=== PATIENT | female | born 1940 ===

== ENCOUNTER 2024-02-19 06:19 | Day surgery (SDC) | payer MEDICARE, OTHER, SELFPAY ==
[2024-02-19] VITALS (12 sets, daily range): BP systolic 109–127; BP diastolic 67–84; BMI 23.1
--- NOTE | 2024-02-19 17:33 | PTCARENOTE ---
Pt returned from OR to [facility] bay 1 via stretcher. VSS on monitor. Pt alert. Updated pt on plan of care. 2L n/c applied. Family updated by surgeon.
--- NOTE | 2024-02-19 18:09 | PTCARENOTE ---
Pt still in [facility] bay 1. Surgeon spoke to patient's son on the phone, pt remains in SDS and NPO status. Report given to Catrachita PEREZ.
--- NOTE | 2024-02-19 18:50 | PTCARENOTE ---
Received report from Paula RN at 1800. Pt aox4. 2L NC. HR 40-70 BPM. NSR with PACs and PVCs. Denies pain. Awaiting OR
--- NOTE | 2024-02-19 19:26 | PTCARENOTE ---
Pt voided. Unsteady, assist x1. Pt now on RA 02 sat 97%. Report given to AUDRA Magallon, CHRIS.
--- NOTE | 2024-02-19 21:52 | OR.RPT ---
Operative Report
Operative Report
Anesthesia Type:
General With peripheral block
Operative Indications:
Displaced 2 part proximal humerus fracture with greater than 100% displacement
Operative Findings :
Same
Complications:
None
Implants:
[place] T2 short 10 mm proximal humeral nail
Procedure and Technique:
Insertion left humeral intramedullary nail
INDICATIONS FOR PROCEDURE:
Patient is an active 83-year-old female who resides independently sustained a mechanical fall diagnosed with a left proximal humerus fracture. She follow-up in office and there was significant interval displacement compared to her injury films.
There is greater than 100% of displacement fracture without any cortical contact in the shaft and the humeral head. We discussed treatment options with surgical nonsurgical. Given her activity level, she opted to pursue surgical intervention. We
discussed risks benefits and alternatives of surgery. We discussed the usual expected perioperative and postoperative course. After discussion written informed consent was obtained.
OPERATIVE PROCEDURE:
Patient was seen identified the preoperative holding area. Operative extremities marked. All questions were addressed and answered. She was taken to the operating room where anesthesia was administered. She was placed in a beachchair position.
Preoperative orthogonal images confirmed displaced 2 part proximal humerus fracture. Operative extremity was then prepped and draped in normal sterile fashion. Timeout was performed again identifying the correct operative extremity. Preoperative
antibiotics were addressed. Anterolateral incision was made just off the anterior lateral corner of the acromion. Sharp dissection was carried through skin subcutaneous tissues. Electrocautery was used for hemostasis. Raphae and the deltoid was
identified and incised. Bursal tissue was removed and subacromial space. Under fluoroscopic guidance guidewire was inserted into the humeral head down the humeral shaft after a reduction maneuver was performed. Opening reamer was utilized. Nail
was then inserted to the appropriate depth. Through additional stab incisions, 3 locking screws were placed proximally. Attention was paid to make sure that these were extra-articular and there was no penetration into the joint. 2 additional
locking interlocking screws were placed distally through the nail. Orthogonal fluoroscopic images confirmed appropriate reduction of the fracture. There was no palpable crepitus with motion of the shoulder. The glenohumeral joint was moved under
live fluoroscopy and there was no evidence of intra-articular penetration of screws. Satisfied with extent surgery, wounds were copiously irrigated normal saline solution. Wounds were closed in layered fashion utilizing 2-0 Vicryl for deep fascial
layer subacromial space and repair of the deltoid as well as 2-0 Vicryl for the subcutaneous layer. [place] were used for closure of skin. Aquacel dressings placed. Anesthesia was reversed and patient was taken to PACU in stable condition.
Postoperative plans include nonweightbearing to the left upper extremity in sling. Plan to keep patient overnight and discharge home after therapy works with her. Plan to see patient back in 2 weeks.
Disposition:
PACU stable condition
[2024-02-19] MEDS: DILAUDID 0.25 MG IV (22:16)
[2024-02-19] MEDS: NSS 1000 IV (22:51)
[2024-02-19] MEDS: COLACE 100 MG PO (22:54)
--- NOTE | 2024-02-19 23:08 | PTCARENOTE ---
22:25 pt rec'vd from PACU aaox3, able to make needs known. Pt l shoulder Aquacel in place CDI with WADE mishra. Oriented to unit , family met pt in room and quickly left.
[2024-02-20] VITALS (7 sets, daily range): BP systolic 109–129; BP diastolic 55–76; PULSE 65–67; O2SAT 96
[2024-02-20] MEDS: ROXICODONE 5 MG PO ×2 (00:09→08:39)
[2024-02-20] MEDS: ANCEF 5 IV ×2 (00:09→08:34)
--- NOTE | 2024-02-20 07:47 | W.PN.ORTHO ---
Today's Communication / Plan
-
83-year-old female postop day 1 status post left proximal humerus intramedullary nail doing well
Nonweightbearing left upper extremity in sling
PT OT
Pain control
Plan for discharge later today pending PT evaluation
Will send narcotic and 81 mg aspirin daily to patient's pharmacy
Subjective
.
.:
Patient resting comfortably this morning. No acute overnight events.
Vital Signs and Labs
.
Vital Signs and Labs:
Temp Pulse Resp BP Pulse Ox
97.7 F 72 18 110/62 96
02/20/24 03:52 02/20/24 03:52 02/20/24 03:52 02/20/24 03:52 02/20/24 03:52
Physical Exam
-
Musculoskeletal left upper extremity
Dressing clean dry and intact
Moderate swelling
Sensations intact to light touch in all dispositions distally
Brisk cap refill
No gross motor or sensory deficits
[2024-02-20] MEDS: COLACE 100 MG PO (08:35)
[2024-02-20] MEDS: NSS IV (09:28)
--- NOTE | 2024-02-20 10:48 | CM ---
CM met with pt and son/Geovanny bedside
Pt resides alone in a ranc[place] with 3STE
Pt is independent with her ADLs- drives+
Denies use of DMEs and hx with VN/SNF
Denies financial insecurities
PCP- Missy Condon
Rx- Jonny/Mason
VN recommended by therapy
Referral made to [facility]
Pt with plans to move to [facility] in 6 weeks
spouse listed as primary contact on chart
Contacts updated with admissions
1). Samuel Cramer/son joint POA [phone]
2). Geovanny Cramer/son joint POA [phone]
Discharge Disposition- [facility] family transport
--- NOTE | 2024-02-20 13:10 | VNURNOTE ---
Home Health Liaison met with patient and son to discuss [facility] nurse/therapy, visits, schedule and homebound status. Patient is agreeable and understands that visits at home will be 2-3 x per week to assess and teach medical management.
[facility] brochure provided with contact information. Patient is aware that [facility] will contact them for start of care in 1-2 days after discharge from .
[facility] referral completed in [facility].
== END 2024-02-20 13:38 | disposition home or self-care (01) ==
LOC: SDS 06:19
PROVIDERS: ATTENDING PHYSICIAN Orthopaedic Surgery; FAMILY PHYSICIAN Family Medicine
DX: S42.292A Other displaced fracture of upper end of left humerus, initial encounter for closed fracture (principal); W19.XXXA Unspecified fall, initial encounter
CPT/HCPCS: 24516; C1713; 73030; 76000; 97116; 97162; 97166; 97535

== ENCOUNTER 2024-03-19 12:34 | Inpatient (IN) | payer MEDICARE, OTHER, SELFPAY ==
[2024-03-18] VITALS (47 sets, daily range): BP systolic 66–114; BP diastolic 36–73; BMI 21.5; BMI 22.4
[2024-03-18] MEDS: TYLENOL 1000 MG PO (06:50)
[2024-03-18] MEDS: CELEBREX 200 MG PO (06:50)
--- NOTE | 2024-03-18 07:40 | W.PN.UPDATE ---
Update Note
Progress Note Update
L Reverse TSA conversion w/ removal of hardware 03/18/24-Dr. Jade
(Left proximal humerus fx-s/p intramedullary nail 02/19/24)
DVT ppx-ASA
--- NOTE | 2024-03-18 08:07 | W.DS.TRANS ---
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
-
Discharge Instructions:
Sleep Apnea Risk Low
Discharge Diagnosis/Procedures L Reverse TSA conversion w/ removal of hardware
03/18/24-Dr. Jade
(Left proximal humerus fx-s/p intramedullary
nail 02/19/24)
Diet As tolerated
Activity No strenuous activity
Additional Activity NWB LUE
Driving Restrictions No driving
Instructions:
Stand-Alone Forms: Total Shoulder Replacement D/C
Changes to Home Medications: Yes
Discharge Medications:
DC Medications w/original date entered in [employer]
amlodipine 5 mg tablet 5 mg PO DAILY 02/18/24
calcium 600 mg (as carbonate)-vit D3 20 mcg (800 unit) chewable tablet (Caltrate plus D) 1 tab PO BID 02/18/24
triamterene 37.5 mg-hydrochlorothiazide 25 mg capsule 1 cap PO DAILY 02/18/24
aspirin 81 mg capsule 81 mg PO DAILY 03/12/24
mupirocin 2 % topical ointment 1 applic topical BID 03/13/24
Saccharomyces boulardii 250 mg capsule (Florastor) 250 mg PO BID #1 cap 03/18/24
acetaminophen 500 mg tablet 1,000 mg (2 x 500 mg) PO QID #0 tabs 03/18/24
aspirin 325 mg tablet 325 mg PO DAILY blood clot prevention #1 tab 03/18/24
celecoxib 200 mg capsule 200 mg PO DAILY anti-inflammatory #14 caps 03/18/24
dexamethasone 4 mg tablet 4 mg PO BID inflammation #6 tabs 03/18/24
docusate sodium 100 mg capsule (Colace) 100 mg PO BID stool softner #1 cap 03/18/24
doxycycline hyclate 100 mg capsule 100 mg PO BID infection prevention #10 caps 03/18/24
famotidine 20 mg tablet 20 mg PO HS GI prophylaxis #30 tabs 03/18/24
gabapentin 300 mg capsule 300 mg PO HS sleep/pain #10 caps 03/18/24
magnesium hydroxide 400 mg/5 mL oral suspension (Milk of Magnesia) 30 ml PO HS PRN Constipation #1 mL 03/18/24
ondansetron 4 mg disintegrating tablet 4 mg PO Q6H PRN n/v #20 tabs 03/18/24
sennosides 8.6 mg tablet (Senokot) 17.2 mg (2 x 8.6 mg) PO BID laxative #2 tabs 03/18/24
tramadol 50 mg tablet 50 mg PO Q6H PRN 1 tab moderate pain, 2 if severe #30 tabs 03/18/24
Home Medication Changes
mupirocin 2 % topical ointment 1 applic topical BID 03/13/24
Saccharomyces boulardii 250 mg capsule (Florastor) 250 mg PO BID #1 cap 03/18/24
acetaminophen 500 mg tablet 1,000 mg (2 x 500 mg) PO QID #0 tabs 03/18/24
aspirin 325 mg tablet 325 mg PO DAILY blood clot prevention #1 tab 03/18/24
celecoxib 200 mg capsule 200 mg PO DAILY anti-inflammatory #14 caps 03/18/24
dexamethasone 4 mg tablet 4 mg PO BID inflammation #6 tabs 03/18/24
docusate sodium 100 mg capsule (Colace) 100 mg PO BID stool softner #1 cap 03/18/24
doxycycline hyclate 100 mg capsule 100 mg PO BID infection prevention #10 caps 03/18/24
famotidine 20 mg tablet 20 mg PO HS GI prophylaxis #30 tabs 03/18/24
gabapentin 300 mg capsule 300 mg PO HS sleep/pain #10 caps 03/18/24
magnesium hydroxide 400 mg/5 mL oral suspension (Milk of Magnesia) 30 ml PO HS PRN Constipation #1 mL 03/18/24
ondansetron 4 mg disintegrating tablet 4 mg PO Q6H PRN n/v #20 tabs 03/18/24
sennosides 8.6 mg tablet (Senokot) 17.2 mg (2 x 8.6 mg) PO BID laxative #2 tabs 03/18/24
tramadol 50 mg tablet 50 mg PO Q6H PRN 1 tab moderate pain, 2 if severe #30 tabs 03/18/24
Pending Results: No
--- NOTE | 2024-03-18 11:54 | OR.RPT ---
Operative Report
Operative Report
Anesthesia Type:
General With block
Operative Indications:
Left proximal humerus hardware failure
Operative Findings :
Head split fracture, significantly osteoporotic tuberosities, significant early healing and callus formation, irreparable tuberosities
Complications:
None
Implants:
Adriane reunion size 9 femoral stem cemented, 36+2 glenosphere, 28 baseplate, constrained poly
Procedure and Technique:
Removal of deep implant (proximal humerus nail), conversion to left reverse total shoulder arthroplasty
INDICATIONS FOR PROCEDURE:
Patient is an active 83-year-old female who unfortunately sustained mechanical fall from standing and suffered a left proximal humerus fracture. She was seen initially and given her activity level opted to proceed with surgical intervention of form
of intramedullary nail fixation of proximal humerus fracture. At her first postoperative visit, the fracture displaced and the hardware had failed proximally. Another long discussion was had with the patient regarding treatment options. We
discussed both surgical and nonsurgical options. Patient opted for the most definitive operative treatment. After discussion we mutually elected to proceed with removal of hardware and conversion to left reverse total shoulder arthroplasty. We
discussed risks benefits and alternatives of surgery. We discussed the usual expected perioperative and postoperative course. After discussion written informed consent was obtained
OPERATIVE PROCEDURE:
Patient was seen and identified in the preoperative holding area. Operative extremity was marked. All questions were addressed. She was taken to the operating room after peripheral block was performed and general anesthesia was administered. She
was placed in a beachchair position. Operative extremity was then prepped and draped in normal sterile fashion. Timeout was performed again identifying the correct operative extremity. Preoperative antibiotics were addressed. Initial attempt was
made to remove the distal interlocking screws from the nail. Previous stab incisions were utilized. We were unable to get good purchase with a screwdriver in the screws. Deltopectoral incision approach was then performed with attention paid to
protect all neurovascular structures. Hemostasis was achieved electrocautery. After exposure, there is noted to be significant early callus formation at the fracture site. The proximalmost aspect of the nail was visualized. Callus soft tissue
were removed proximally and the proximal screws were visualized. These were removed. Deltopectoral incision was then extended distally and the distal no screws were able to be palpated and also removed with a screwdriver. The nail was then
removed with anaer. After exposure, the lesser tuberosity was noted to be fractured and the subscapularis was of poor quality and irreparable. The remainder of the humeral head and greater tuberosity were extremely osteoporotic. The head was
rotated posteriorly. This was able to be removed in a piecemeal fashion but was again irreparable. Lesser tuberosity fragment was also excised. Axillary nerve was palpated and protected throughout remainder of exposure. The proximal humeral neck
fracture site was freshened up. Attention was then turned to the glenoid. Debulking of the capsule and labral tissue was performed. Central guidepin was then inserted and a size 24 central screw was measured. The glenoid was then reamed to
bleeding bone. Glenoid was placed. Remainder peripheral scrotal's were drilled. Size 20 mm screw was used superiorly, 16 mm screw posteriorly, 16mm screw anteriorly and 24 mm screw inferiorly. Excellent purchase was achieved. Glenosphere was
then placed in appropriate position. Attention was then turned back to the humerus. Hand reamers were utilized. Trial reduction was performed. Trial implants were then removed and the intramedullary canal was prepared for cementing. Cement
restrictor was placed. Cement was then placed in the intramedullary canal and the humeral stem was placed in appropriate version 20 degrees. Once this hardened trialing was performed until stable construct without impingement was found. Final
implants were then placed and again taken through range of motion found to be quite stable. Satisfied with extent of surgery, wound was copiously irrigated normal saline solution. 1 g of vancomycin powder was then placed. Deltopectoral interval
was then closed loosely with 0 Vicryl in an interrupted fashion. Subcutaneous layer was closed with 2-0 Vicryl. Sanket angulus or skin. Aquacel dressing was placed. Sling was then placed and patient was taken to PACU in stable condition.
Disposition:
PACU stable condition
[2024-03-18] MEDS: NEO-SYNEPHRINE 250 IV (12:05)
--- NOTE | 2024-03-18 12:09 | PTCARENOTE ---
PT arrived to PACU, easily arousable, denies pain, nausea, BP was 75/44, DR Higuera at bedside, 500 ml Fluid bolus ordered, Anesthesia administered 200 mcg of Conrad-Syn, BP did respond, however quickly dropped to 60's, Per Dr Higuera Conrad Drip
ordered as per protocol started @ 20 mcg, see MAR
[2024-03-18] MEDS: TYLENOL 650 MG PO ×3 (12:44→21:44)
--- NOTE | 2024-03-18 12:57 | PTCARENOTE ---
Attempted to wean off pressors, PT BP dropped to 86/62 without any Neosyn, placed drip on , PT remains asymptomatic to hypotension
--- NOTE | 2024-03-18 14:36 | HPS.HSE ---
Family Physician
-
Family Physician: INTERVIEWE UNKNOWN - PT NOT
Chief Complaint
-
hypotension
History of Present Illness
83yo F with PMHx of ASCVD, neuropathy, RA, preDM, OA, HTN had left proximal humerus intramedullary nail after LUE Fx done on 02/19/24, that later failed so as per agreement with ortho - L reverse total shoulder arthroplasty done electively on
03/18/24. Patient developed hypotension during the procedure. No significant blood loss perioperatively. Patient did not report any sickness prior to the surgery, however confirmed taking her Amlodipine in AM. Diuretics were held. No other
complains, BP improved on Neoepinephrine low dose.
Medical History
Past Medical History
Past Medical History: Reports Other (See HPI)
Past Surgical History: Reports Other (See HPI)
Social History
Tobacco: Non-smoker
Alcohol: None
Drug: None
Family History
Family History: Not pertinent
Allergies / Home Medications
Allergies reflects when Allergies were last updated in [facility].
Home Medications with original date entered in [facility]
Allergy/Medication List:
Allergies
Allergy/AdvReac Type Severity Reaction Status Date / Time
adhesive Allergy Redness Verified 02/19/24 15:12
Home Medications
amlodipine 5 mg tablet 5 mg PO DAILY 02/18/24
calcium 600 mg (as carbonate)-vit D3 20 mcg (800 unit) chewable tablet (Caltrate plus D) 1 tab PO BID 02/18/24
triamterene 37.5 mg-hydrochlorothiazide 25 mg capsule 1 cap PO DAILY 02/18/24
aspirin 81 mg capsule 81 mg PO DAILY 03/12/24
mupirocin 2 % topical ointment 1 applic topical BID 03/13/24
Saccharomyces boulardii 250 mg capsule (Florastor) 250 mg PO BID #1 cap 03/18/24
acetaminophen 500 mg tablet 1,000 mg (2 x 500 mg) PO QID #0 tabs 03/18/24
aspirin 325 mg tablet 325 mg PO DAILY blood clot prevention #1 tab 03/18/24
celecoxib 200 mg capsule 200 mg PO DAILY anti-inflammatory #14 caps 03/18/24
dexamethasone 4 mg tablet 4 mg PO BID inflammation #6 tabs 03/18/24
docusate sodium 100 mg capsule (Colace) 100 mg PO BID stool softner #1 cap 03/18/24
doxycycline hyclate 100 mg capsule 100 mg PO BID infection prevention #10 caps 03/18/24
famotidine 20 mg tablet 20 mg PO HS GI prophylaxis #30 tabs 03/18/24
gabapentin 300 mg capsule 300 mg PO HS sleep/pain #10 caps 03/18/24
magnesium hydroxide 400 mg/5 mL oral suspension (Milk of Magnesia) 30 ml PO HS PRN Constipation #1 mL 03/18/24
ondansetron 4 mg disintegrating tablet 4 mg PO Q6H PRN n/v #20 tabs 03/18/24
sennosides 8.6 mg tablet (Senokot) 17.2 mg (2 x 8.6 mg) PO BID laxative #2 tabs 03/18/24
tramadol 50 mg tablet 50 mg PO Q6H PRN 1 tab moderate pain, 2 if severe #30 tabs 03/18/24
Review of Systems
-
History Source: Patient and Family
A 12 point ROS was completed and negative except as noted: Yes
Physical Exam
Vital Signs
Vital Signs
Temp Pulse Resp BP Pulse Ox
97.2 F 56 18 97/62 99
03/18/24 14:30 03/18/24 14:00 03/18/24 14:00 03/18/24 14:00 03/18/24 14:30
Physical Exam
General: No Apparent Distress, Comfortable and Conversant
HEENT: Anicteric, Moist mucous membranes and [place] Conjunctivae
Respiratory: Clear; No Wheezes, Rales or Rhonchi
Cardiac: S1/S2 and Regular Rhythm; No Bradycardia or Tachycardia
GI: Soft, Non Tender and Non Distended
Musculoskeletal: No Clubbing, No Cyanosis and No Edema
Skin: Warm; No Rash or Jaundice
Neuro: Awake, Alert, Oriented, AO x 3, No Motor Deficits and Nonfocal/grossly intact
Psych: Calm
Impression/Plan
-
A/P:
#PostOP hypotension
most likely 2/2 intubation, anaesthesia on the top of antihypertensives
CBC, CMP stat
EKG stat, but no chest pain
IVF and wean off pressors
check TSH
Pain mgmt as per ortho
#Esential HTN
hold off antihypertensives
DVt ppx - on ASA as per Ortho
Add SCDs
Full code
I have spent at least 57min reviewing chart, test results, communication with consultants, family and direct patient care
[2024-03-18 14:44] LABS: % Basophils 0.2 % (0-2); % Eosinophils 0.1 % (0-6); % Immature Granulocytes 0.4 % (0-0.5); % Lymphocytes 3.6 % (20.5-51.1); % Monocytes 1.7 % (1.7-9.3); Absolute Lymphocytes 0.4 10^3/uL (1.2-3.4); Absolute Monocytes 0.2 10^3/uL (0.1-0.6); Absolute Neutrophils 9.9 10^3/uL (1.4-6.5); Hematocrit 23.7 % (37.0-47.0); Hemoglobin 8.1 g/dL (12.0-16.0); Mean Corp Hgb Conc. 34.2 g/dL (33.0-37.0); Mean Corpuscular Hgb 32.8 pg (27.0-31.0); Mean Platelet Volume 10.7 fL (7.4-10.4); Nucleated Red Blood Cells % 0 %; Platelet Count 141 10^3/uL (130-400); Red Blood Cell Count 2.47 10^6/uL (4.20-5.40); Red Cell Dist. Width 13.5 % (11.5-14.5); White Blood Cell Count 10.5 10^3/uL (4.8-10.8)
[2024-03-18 15:13] LABS: Albumin 1.2 g/dl (3.5-5.0); Alkaline Phosphatase 43 U/L (38-126); Blood Urea Nitrogen 5 mg/dl (7-17); Chloride 97 mmol/L (98-107); Estimated Creatinine Clearance 51 ml/min; Glucose 85 mg/dl (70-99); Potassium 4.1 mmol/L (3.5-5.1); Sodium 132 mmol/L (135-145); Total Protein 2.2 g/dl (6.3-8.2); eGFR > 60.00
[2024-03-18 15:14] LABS: ALT (SGPT) < 10 U/L (0-35); AST (SGOT) 10 U/L (14-36); Calcium 3.7 mg/dl (8.4-10.2); Carbon Dioxide 10 mmol/L (22-30); Total Bilirubin 0.4 mg/dl (0.2-1.3)
[2024-03-18 15:35] LABS: TSH 0.32 uIU/ml (0.47-4.68)
[2024-03-18] MEDS: ANCEF 5 IV (16:08)
[2024-03-18] MEDS: NORMOSOL-R/PLASMALYTE-A 1000 IV (16:08)
[2024-03-18 16:17] LABS: Ionized Calcium 1.15 mMOL/L (1.15-1.33)
[2024-03-18 16:25] LABS: % Basophils 0.2 % (0-2); % Eosinophils 0.1 % (0-6); % Immature Granulocytes 0.5 % (0-0.5); % Lymphocytes 4.1 % (20.5-51.1); % Monocytes 2.2 % (1.7-9.3); % Neutrophils 92.9 % (42.2-75.2); Absolute Immature Granulocytes 0.1 10^3/uL (0-0.05); Absolute Lymphocytes 0.5 10^3/uL (1.2-3.4); Absolute Monocytes 0.3 10^3/uL (0.1-0.6); Absolute Neutrophils 11.9 10^3/uL (1.4-6.5); Hematocrit 36.8 % (37.0-47.0); Hemoglobin 12.2 g/dL (12.0-16.0); Mean Corp Hgb Conc. 33.2 g/dL (33.0-37.0); Mean Corpuscular Hgb 32.4 pg (27.0-31.0); Mean Corpuscular Volume 97.6 fL (81.0-99.0); Mean Platelet Volume 11.6 fL (7.4-10.4); Nucleated Red Blood Cells % 0 %; Platelet Count 225 10^3/uL (130-400); Red Blood Cell Count 3.77 10^6/uL (4.20-5.40); Red Cell Dist. Width 13.6 % (11.5-14.5); White Blood Cell Count 12.8 10^3/uL (4.8-10.8)
[2024-03-18 16:29] LABS: Lactic Acid 2.7 mmol/L (0.7-2.0)
--- NOTE | 2024-03-18 16:30 | PTCARENOTE ---
1455: Patient arrived to IMU. Patient AOx3. L arm aquacell with moderate amount of serosang drainage. Bruising around aquacell dressing. L arm sling in place. IVF running per order. Conrad running at 20/hr. MAP > 65. Patient on RA with SpO2 greater
than 92%. Patients family at bedside. Call zhu within reach, bed in lowest position, bed of wheels locked.
[2024-03-18 16:35] LABS: ALT (SGPT) 16 U/L (0-35); AST (SGOT) 25 U/L (14-36); Albumin 3.5 g/dl (3.5-5.0); Alkaline Phosphatase 112 U/L (38-126); Blood Urea Nitrogen 12 mg/dl (7-17); Calcium 9.1 mg/dl (8.4-10.2); Carbon Dioxide 27 mmol/L (22-30); Chloride 100 mmol/L (98-107); Estimated Creatinine Clearance 51 ml/min; Glucose 172 mg/dl (70-99); Potassium 3.5 mmol/L (3.5-5.1); Sodium 137 mmol/L (135-145); Total Protein 5.6 g/dl (6.3-8.2); eGFR > 60.00
--- NOTE | 2024-03-18 17:00 | PTCARENOTE ---
1700: Conrad gtt turned off due to patients MAP >65 for 4 hours per order. Will continue to monitor. Care ongoing at this time.
[2024-03-18] MEDS: ASPIRIN 325 MG PO (17:11)
[2024-03-18] MEDS: COLACE 100 MG PO (21:44)
[2024-03-18] MEDS: TORADOL 15 MG IV (21:45)
[2024-03-18] MEDS: SENOKOT PO (21:46)
[2024-03-18] MEDS: DECADRON 4 MG IV (21:47)
[2024-03-18] MEDS: BACTROBAN 2% OINTMENT 1 APPLIC NASAL (21:48)
--- NOTE | 2024-03-18 22:00 | PTCARENOTE ---
Pt received from previous RN. Pt AAOx3, anxious at times. Pt on RA, sats >95%. Left arm in sling, aquacell intact, scant drainage, moderate bruising to left arm around aqucell. Pt with frequent small amounts of urination. Pt check frequently for
incomitance. Pt turned. Foot pumps in use. Assessment as documented. Call light in reach.
--- NOTE | 2024-03-18 23:30 | PTCARENOTE ---
Map <65. Bp reading 89/49(61). [employer] Operator notified. Conrad turned back on.
[2024-03-19] VITALS (43 sets, daily range): BP systolic 88–122; BP diastolic 41–86; PULSE 60–90; O2SAT 99; BMI 22.9
[2024-03-19] MEDS: TYLENOL 650 MG PO ×5 (00:19→20:30)
[2024-03-19] MEDS: ANCEF 5 IV (00:20)
[2024-03-19] MEDS: NEURONTIN 300 MG PO ×2 (00:20→22:14)
[2024-03-19 04:05] LABS: Hematocrit 30.8 % (37.0-47.0); Hemoglobin 10.3 g/dL (12.0-16.0); Mean Corp Hgb Conc. 33.4 g/dL (33.0-37.0); Mean Corpuscular Hgb 32.3 pg (27.0-31.0); Mean Corpuscular Volume 96.6 fL (81.0-99.0); Mean Platelet Volume 10.9 fL (7.4-10.4); Platelet Count 195 10^3/uL (130-400); Red Blood Cell Count 3.19 10^6/uL (4.20-5.40); Red Cell Dist. Width 13.6 % (11.5-14.5); White Blood Cell Count 9.5 10^3/uL (4.8-10.8)
[2024-03-19 05:07] LABS: Cortisol, Random 2.2 ug/dl; TSH Reflex To Free T4 0.36 uIU/ml (0.47-4.68)
[2024-03-19 05:37] LABS: Free T4 1.15 ng/dl (0.78-2.19)
[2024-03-19] MEDS: TYLENOL PO ×2 (06:30→23:55)
[2024-03-19] MEDS: CELEBREX 200 MG PO (08:52)
[2024-03-19] MEDS: COLACE 100 MG PO ×2 (08:52→20:29)
[2024-03-19] MEDS: ASPIRIN 325 MG PO (08:53)
[2024-03-19] MEDS: DECADRON 4 MG IV (08:53)
[2024-03-19] MEDS: TORADOL 15 MG IV ×2 (08:54→20:32)
[2024-03-19] MEDS: SENOKOT 17.2 MG PO ×2 (08:54→20:29)
[2024-03-19] MEDS: BACTROBAN 2% OINTMENT 1 APPLIC NASAL ×2 (08:55→20:33)
--- NOTE | 2024-03-19 09:51 | W.PN.HOSP.TC ---
Today's Communication/Plan
-
PT/OT
Possible d/c based on their eval
Assessment / Plan
Assessment / Plan
83yo F with PMHx of ASCVD, neuropathy, RA, preDM, OA, HTN had left proximal humerus intramedullary nail after LUE Fx done on 02/19/24, that later failed so as per agreement with ortho - L reverse total shoulder arthroplasty done electively on
03/18/24. Patient developed hypotension during the procedure that was atributed to dehydration with home diuretics, amlodipine on the day of Sx and anethesia effect. Weaned off pressors next day after admission
A/P:
#PostOP hypotension
most likely 2/2 intubation, anaesthesia on the top of antihypertensives
CBC, CMP stat
EKG stat, but no chest pain
IVF and wean off pressors
Pain mgmt as per ortho
PT/OT
#Subclinical hyperthyroidism
repeat TSH in 2-3 weeks with PCP
#Decreased Cortisol
most liekly supression 2/2 steroids periOP
repeat with PCP in 2-3 weeks and consider ACTH stim test
#Esential HTN
hold off antihypertensives
Advised to not initiate diuretics upon the d/c
DVT ppx - on ASA as per Ortho
Add SCDs
Full code
I have spent at least 57min reviewing chart, test results, communication with consultants, family and direct patient care
Anticipated Discharge: Within 24 hours
Subjective/Interval History
-
Date of Service: March 19, 2024
Objective Data
-
Labs:
Laboratory Results
03/19/24
03:56
WBC 9.5
Hgb 10.3 L
Hct 30.8 L
Plt Count 195
Vital Signs:
Vital Signs
Temp Pulse Resp BP Pulse Ox
98.1 F 53 15 93/55 61
03/19/24 07:39 03/19/24 06:15 03/19/24 06:15 03/19/24 06:15 03/19/24 06:15
I&O
03/18/24 03/19/24 03/20/24
06:59 06:59 06:59
Intake Total 600 / 600
Balance 600 / 600
Review of Systems
-
History Source: Patient
All other systems: Reviewed and negative
Physical Exam
-
General: No Apparent Distress
HEENT: Normocephalic
Cardiac: Regular Rhythm
GI: Soft, Nontender and Nondistended
Neuro: Awake, Alert, Oriented and AO x 3
Psych: Calm
--- NOTE | 2024-03-19 12:04 | CM ---
Patient with Hx fall who is s/p Removal of deep implant (proximal humerus nail), conversion to left reverse total shoulder arthroplasty. NWB LUE in sling. PT recommends skilled rehab.
Met with patient who resided alone in a one story house with 2 SAAD.
The patient had been independent in ADLs and ambulation without using an assistive devices.
She was active walking outside and says she [facility] [employer] last [facility].
The patient has no DME or prior SNF.
[facility] with [facility] and says she was getting PT at home for balance issues.
The patient says she had been planning on moving into [facility] in [place], and reports that they have accepted her for rehab. Her son has been helping with those plans.

Spoke with Roseline Armendariz [facility]; they are able to accept the patient on 03/21 after she satisfies her 3 day Medicare qualifier. They do not use [facility] and need the referral faxed to [phone] ---> sent via
[address]. The for report [phone] prompt 1, fax [phone].
Spoke with patient's son Samuel BOWDEN who confirms that he arranged for his mother to move into [facility]. Explained that [facility] SNF can accept his mother on 03/21 and he is in agreement with that plan. Provided update on
how she did with PT/OT today and that currently PT/OT advises against her transporting in the car to rehab, due to need to maintain non-wt bearing status for her shoulder and inability to master ambulation with a cane at this time.
Plan follow up with [facility] to ensure referral received/accepted.
Plan [facility] 03/21 with transport arranged.
--- NOTE | 2024-03-19 12:12 | W.PN.ORTHO ---
Today's Communication / Plan
-
83 yo F pod 1 s/p CHRISTINE, conversion to left rTSA. Required pressors post op and transfer to IMU, per nursing, off of pressors for over 4 hrs with approriate BP
NWB LUE in sling/abduction pillow
PT/OT
Pain control
recommend asa 81 mg daily for DVT ppx upon discharge
Medical management/pressor management per medicine
Once BP appropriate off support, OK for discharge from my standpoint
Follow up 2 weeks. This is already scheduled
Will send ASA and oxycodone to patient's pharmacy
Subjective
.
.:
Patient resting comfortably in bed this morning. Reports well controlled pain.
Vital Signs and Labs
.
Vital Signs and Labs:
Lab Results
03/19/24 03:56
03/18/24 15:57
Temp Pulse Resp BP Pulse Ox
97.3 F 59 11 114/71 97
03/19/24 11:45 03/19/24 08:30 03/19/24 09:00 03/19/24 11:30 03/19/24 09:00
Physical Exam
-
MSK LUE
Minimal bloody drainage on dressing
Moderate swelling, ecchymosis upper arm
SILT all distributions distally including axillary nerve distribution
Able to retropulse thumb and extend wrist
BCR
--- NOTE | 2024-03-19 19:10 | PTCARENOTE ---
OOB all day - ambulates with 1 assist to bathroom. Unsteady gait. Left shoulder immobilizer intact/ readjusted through the day.. Aquacell dressing to left shoulder w/ shadowing no active bleeding. Denies pain- receiving atc Tylenol. Appetite
good- NO BM may need intervention. Voiding in bathroom. Calls for assistance.
--- NOTE | 2024-03-19 21:42 | PTCARENOTE ---
pt received from previous RN. Pt AAOx3, making needs known. Sinus meggan on monitor, HR 55. BP 121/71(83). Assessment as documented. left arm in sling per order. Call light in reach.
[2024-03-20] VITALS (10 sets, daily range): BP systolic 104–121; BP diastolic 61–85; PULSE 58; O2SAT 99
[2024-03-20] MEDS: TYLENOL PO (04:16)
[2024-03-20] MEDS: CELEBREX 200 MG PO (07:51)
[2024-03-20] MEDS: TYLENOL 650 MG PO (07:51)
[2024-03-20] MEDS: SENOKOT 17.2 MG PO ×2 (07:51→20:49)
[2024-03-20] MEDS: COLACE 100 MG PO ×2 (07:51→20:49)
--- NOTE | 2024-03-20 08:26 | VNURNOTE ---
Chart reviewed. Patient is current with [facility] nursing, PT, OT, UNDERWEAR FINISHER. Will continue to follow hospital course and DC plans.
--- NOTE | 2024-03-20 09:14 | W.PN.HOSP.TC ---
Addendum entered and electronically signed by Michael Garcia MD 03/20/24 09:28:
#Prolonged QTc
avoid QT-prolonging meds
EKG
Original Note:
Today's Communication/Plan
-
Echo
Pending rehab
telemetry
Assessment / Plan
Assessment / Plan
83yo F with PMHx of ASCVD, neuropathy, RA, preDM, OA, HTN had left proximal humerus intramedullary nail after LUE Fx done on 02/19/24, that later failed so as per agreement with ortho - L reverse total shoulder arthroplasty done electively on
03/18/24. Patient developed hypotension during the procedure that was atributed to dehydration with home diuretics, amlodipine on the day of Sx and anethesia effect. Weaned off pressors next day after admission. DIzziness resolved, PT/OT recommended
rehab
A/P:
#PostOP hypotension with lactic acidosis
#Asymptomatic bradycardia
most likely 2/2 intubation, anaesthesia on the top of antihypertensives
CBC, CMP stat
EKG stat, but no chest pain
IVF and wean off pressors
Pain mgmt as per ortho
PT/OT
Echo
Avoid BB and CCB
#Subclinical hyperthyroidism
repeat TSH in 2-3 weeks with PCP
#Decreased Cortisol
most likely supression 2/2 steroids periOP
repeat with PCP in 2-3 weeks and consider ACTH stim test
#Essential HTN
hold off antihypertensives
Advised to not initiate diuretics upon the d/c
DVT ppx - on ASA 81mg upon d/c as per Ortho
Add SCDs
Full code
I have spent at least 37min reviewing chart, test results, communication with consultants, family and direct patient care
Anticipated Discharge: 24 - 48 hours
Subjective/Interval History
-
Date of Service: March 20, 2024
Objective Data
-
Vital Signs:
Vital Signs
Temp Pulse Resp BP Pulse Ox
98.3 F 51 14 105/74 98
03/20/24 07:12 03/20/24 06:00 03/20/24 06:00 03/20/24 04:58 03/19/24 23:05
I&O
03/19/24 03/20/24 03/21/24
06:59 06:59 06:59
Intake Total 600 / 600 900 / 900
Balance 600 / 600 900 / 900
Review of Systems
-
History Source: Patient
All other systems: Reviewed and negative
Physical Exam
-
General: No Apparent Distress
Neuro: Awake, Alert, Oriented and AO x 3
Psych: Calm
[2024-03-20 10:29] LABS: Hematocrit 31.5 % (37.0-47.0); Hemoglobin 10.2 g/dL (12.0-16.0)
[2024-03-20 10:42] LABS: Blood Urea Nitrogen 32 mg/dl (7-17); Carbon Dioxide 33 mmol/L (22-30); Chloride 101 mmol/L (98-107); Estimated Creatinine Clearance 38 ml/min; Glucose 96 mg/dl (70-99); Magnesium 2.3 mg/dl (1.6-2.3); Potassium 3.4 mmol/L (3.5-5.1); Sodium 138 mmol/L (135-145); eGFR > 60.00
[2024-03-20] MEDS: PROTONIX 40 MG PO (11:13)
--- NOTE | 2024-03-20 12:01 | W.PN.ORTHO ---
Today's Communication / Plan
-
D/c when clinically stable.
Assessment
.
Distal Motor Intact: Yes
Dressing:
Clean, dry and intact.
Assessment:
83 yo F POD 2 s/p CHRISTINE, conversion to left reverse TSA. Required pressors post op and transfer to IMU; thankfully, off of pressors for last 24 hours with appropriate BP
NWB LUE in sling/abduction pillow
Continue PT/OT - recommend SNF due to balance difficulties/for safety
Continue current pain medications. Oxycodone, thankfully, has not been needed at this point.
Recommend ASA 81 mg daily for DVT ppx upon discharge
Medical management/pressor management per medicine
Continue to do well from an orthopedic standpoint
Follow up 2 weeks. This is already scheduled.
Plan
.
Surgery / Date: CHRISTINE, conversion to left reverse TSA w/ Jade
DVT Prophylaxis: Aspirin (81 mg PO daily upon d/c )
Activity:
Out of bed.
PT/OT
Discharge Plan: SNF
Subjective
.
.:
Patient resting comfortably in her chair.
L shoulder pain well controlled currently. Reportedly, at most, 3/10 post-op.
Denies any other complaints.
Vital Signs and Labs
.
Vital Signs and Labs:
Lab Results
03/20/24 10:12
03/20/24 10:12
Temp Pulse Resp BP Pulse Ox
98.3 F 56 19 110/61 98
03/20/24 07:12 03/20/24 10:00 03/20/24 10:00 03/20/24 09:22 03/19/24 23:05
Physical Exam
-
HEENT: No pallor, cyanosis, or jaundice. Throat clear.
NECK: Supple. No JVD.
RESPIRATORY: Lungs clear to auscultation.
CVS: S1, S2 normal. RRR.�
ABDOMEN: Soft, non-tender. No distension.
EXTREMITIES: + LUE sling. Good operations superintendent/radial pulses b/l. Able to wiggle fingers b/l. Strength equal, no calf pain with palpation/dorsiflexion. Calves soft.
LEASING MANAGER: AOx3. No focal deficits. director financial planning grossly intact
--- NOTE | 2024-03-20 12:05 | PTCARENOTE ---
Patient states feeling better today, stronger, more active. VSS. Sinus arrythmia on monitor. To be transferred to today. L shoulder dressing CDI. Patient making needs known. Continuing to closely monitor.
--- NOTE | 2024-03-20 12:59 | CM ---
Patient seen at bedside in IMU. Patient confirmed plan is to transfer to [facility] when medically appropriate.
Called with [facility]; they are able to accept the patient on Sunday03/22/24, First available bed. They do not use [facility] and need the referral updated and CM will fax to [phone] ---> sent via
[employer]. The phone number for report [phone] prompt 1, fax [phone]. CM will need to clarify tomorrow with facility level of transportation needed. Patient family available to transport pending safety evaluation.
CM will continue to follow for discharge planning needs.
Plan; SNF; [facility]
--- NOTE | 2024-03-20 13:57 | PTCARENOTE ---
pt transferred from IMU. AOx3. Denies pain. sinus meggan. LCTA B/L on RA +bsx4. pt reports constipation and baseline incontinence. skin CDI with exception of surgical primaseal on LUE. sling on LUE. Pt denies numbness/tingling. +PP b/L +radial. CB
within reach OT here to see pt.
[2024-03-20] MEDS: LOVENOX 40 MG SC (18:15)
[2024-03-20] MEDS: NEURONTIN 300 MG PO (20:49)
[2024-03-20] MEDS: KCL 40 MEQ PO (21:16)
[2024-03-21] VITALS (8 sets, daily range): BP systolic 96–121; BP diastolic 51–66; PULSE 58–68; O2SAT 97
[2024-03-21 08:44] LABS: Blood Urea Nitrogen 23 mg/dl (7-17); Carbon Dioxide 30 mmol/L (22-30); Chloride 105 mmol/L (98-107); Estimated Creatinine Clearance 51 ml/min; Glucose 106 mg/dl (70-99); Potassium 4.1 mmol/L (3.5-5.1); Sodium 137 mmol/L (135-145); eGFR > 60.00
[2024-03-21] MEDS: COLACE PO ×2 (09:06→19:32)
[2024-03-21] MEDS: SENOKOT PO ×2 (09:06→19:32)
[2024-03-21] MEDS: PROTONIX 40 MG PO (09:06)
[2024-03-21] MEDS: CELEBREX 200 MG PO (09:06)
--- NOTE | 2024-03-21 11:41 | W.PN.HOSP.TC ---
Today's Communication/Plan
-
as per CM - rehab will accept in AM
Assessment / Plan
Assessment / Plan
83yo F with PMHx of ASCVD, neuropathy, RA, preDM, OA, HTN had left proximal humerus intramedullary nail after LUE Fx done on 02/19/24, that later failed so as per agreement with ortho - L reverse total shoulder arthroplasty done electively on
03/18/24. Patient developed hypotension during the procedure that was atributed to dehydration with home diuretics, amlodipine on the day of Sx and anethesia effect. Weaned off pressors next day after admission. DIzziness resolved, PT/OT recommended
rehab
A/P:
#PostOP hypotension with lactic acidosis
#Asymptomatic bradycardia
#QTc prolongation - resolved
most likely 2/2 intubation, anaesthesia on the top of antihypertensives
CBC, CMP stat
EKG stat, but no chest pain
IVF and wean off pressors
Pain mgmt as per ortho
PT/OT
Echo: no wall motion abnormality. Asceding aortic aneurism 4.3cm - outpatient follow up by advised - patoient verbalized understanding
Avoid BB and CCB
#Subclinical hyperthyroidism
repeat TSH in 2-3 weeks with PCP
#Decreased Cortisol
most likely suppression 2/2 steroids periOP
repeat with PCP in 2-3 weeks and consider ACTH stim test
#Essential HTN
hold off antihypertensives
Advised to not initiate diuretics upon the d/c
DVT ppx - on ASA 81mg upon d/c as per Ortho
Add SCDs
Full code
I have spent at least 37min reviewing chart, test results, communication with consultants, family and direct patient care
Anticipated Discharge: Within 24 hours
Subjective/Interval History
-
Date of Service: March 21, 2024
Objective Data
-
Labs:
Laboratory Results
03/21/24
07:46
Sodium 137
Potassium 4.1
Chloride 105
Carbon Dioxide 30
BUN 23 H
Creatinine 0.5 L
Glucose 106 H
Calcium 9.0
Vital Signs:
Vital Signs
Temp Pulse Resp BP Pulse Ox
98.2 F 57 16 119/63 96
03/21/24 08:15 03/21/24 08:15 03/21/24 08:15 03/21/24 08:15 03/21/24 08:15
I&O
03/20/24 03/21/24 03/22/24
06:59 06:59 06:59
Intake Total 900 / 900 600 / 600
Balance 900 / 900 600 / 600
Physical Exam
-
General: No Apparent Distress
HEENT: Normocephalic
Respiratory: Clear to Auscultation
GI: Soft, Nontender and Nondistended
Musculoskeletal: No Clubbing, No Cyanosis and No Edema
Neuro: Awake, Alert, Oriented and AO x 3
Psych: Calm
--- NOTE | 2024-03-21 13:19 | CM ---
Addendum entered by Suzi Genao RN 03/21/24 13:52:
CM spoke with the patient's son Samuel via telephone. Samuel will be able to transport the patient to the facility tomorrow.
Original Note:
Reviewed the chart notes and spoke with the patient at the bedside. IMM reviewed and placed on chart. [facility] admissions liaison requested updated clinicals be faxed to [facility] ([phone]). Faxed.
Plan: Discharge to [facility]. Per patient, a family will provide transport.
Call report to: [phone] prompt 1
Fax report to: [phone].
[2024-03-21] MEDS: LOVENOX 40 MG SC (18:03)
[2024-03-21] MEDS: NEURONTIN 300 MG PO (21:14)
[2024-03-22 02:59] VITALS: BP 105/54
[2024-03-22 07:50] VITALS: BP 101/68
[2024-03-22] MEDS: CELEBREX 200 MG PO (08:38)
[2024-03-22] MEDS: COLACE PO (08:38)
[2024-03-22] MEDS: PROTONIX 40 MG PO (08:38)
[2024-03-22] MEDS: SENOKOT PO (08:38)
[2024-03-22] MEDS: TYLENOL 650 MG PO (08:42)
--- NOTE | 2024-03-22 09:09 | W.PN.HOSP.TC ---
Today's Communication/Plan
-
dc
Assessment / Plan
Assessment / Plan
83yo F with PMHx of ASCVD, neuropathy, RA, preDM, OA, HTN had left proximal humerus intramedullary nail after LUE Fx done on 02/19/24, that later failed so as per agreement with ortho - L reverse total shoulder arthroplasty done electively on
03/18/24. Patient developed hypotension during the procedure that was attributed to dehydration with home diuretics, amlodipine on the day of Sx and anethesia effect. Weaned off pressors next day after admission. Dizziness resolved, PT/OT
recommended rehab. Blood pressure remained WNL off antihypertensives.Daily morning blood pressure measurement advised, keep log and provide it to PCP in 1 week for adjustment of the blood pressure medications. If blood pressure >150/100 - contact
doctor right away. Patient verbalized understanding of the instructions. ascending aortic aneurism monitoring with automobile dealer. Home medications clarified and patient was only on Norvasc, Triamterene/HCTZ and Calcium/Vit D combination.
Medically stable for d/c to rehab
A/P:
#PostOP hypotension with lactic acidosis
#Asymptomatic bradycardia
#QTc prolongation - resolved
most likely 2/2 intubation, anaesthesia on the top of antihypertensives
CBC, CMP stat
EKG stat, but no chest pain
IVF and wean off pressors
Pain mgmt as per ortho
PT/OT
Echo: no wall motion abnormality. Asceding aortic aneurism 4.3cm - outpatient follow up by advised - patient verbalized understanding
Avoid BB and CCB
#Subclinical hyperthyroidism
repeat TSH in 2-3 weeks with PCP
#Decreased Cortisol
Patient was not on home steroids
most likely suppression 2/2 steroids periOP
repeat with PCP in 2-3 weeks and consider ACTH stim test
#Essential HTN
hold off antihypertensives
Advised to not initiate diuretics upon the d/c
DVT ppx - on ASA 81mg upon d/c as per Ortho
Add SCDs
Full code
I have spent at least 37min reviewing chart, test results, communication with consultants, family and direct patient care
Anticipated Discharge: Today
Subjective/Interval History
-
Date of Service: March 22, 2024
Objective Data
-
Vital Signs:
Vital Signs
Temp Pulse Resp BP Pulse Ox
97.4 F 54 20 101/68 96
03/22/24 07:50 03/22/24 07:50 03/22/24 07:50 03/22/24 07:50 03/22/24 07:50
I&O
03/21/24 03/22/24 03/23/24
06:59 06:59 06:59
Intake Total 600 / 600 1440 / 1440
Balance 600 / 600 1440 / 1440
Review of Systems
-
History Source: Patient
All other systems: Reviewed and negative
Physical Exam
-
General: No Apparent Distress
HEENT: Normocephalic
Neuro: Awake, Alert, Oriented and AO x 3
Psych: Calm
--- NOTE | 2024-03-22 09:28 | W.DCSUMMARY ---
Discharge Summary
Discharge Data
Date of Admission: 03/19/24
Date of Discharge: 03/22/24
-
Pending Results: No
Hospital Course
83yo F with PMHx of ASCVD, neuropathy, RA, preDM, OA, HTN had left proximal humerus intramedullary nail after LUE Fx done on 02/19/24, that later failed so as per agreement with ortho - L reverse total shoulder arthroplasty done electively on
03/18/24. Patient developed hypotension during the procedure that was attributed to dehydration with home diuretics, amlodipine on the day of Sx and anethesia effect. Weaned off pressors next day after admission. Dizziness resolved, PT/OT
recommended rehab. Blood pressure remained WNL off antihypertensives.Daily morning blood pressure measurement advised, keep log and provide it to PCP in 1 week for adjustment of the blood pressure medications. If blood pressure >150/100 - contact
doctor right away. Patient verbalized understanding of the instructions. ascending aortic aneurism monitoring with financial risk manager. Home medications clarified and patient was only on Norvasc, Triamterene/HCTZ and Calcium/Vit D combination.
Medically stable for d/c to rehab
I have spent at least 37min reviewing chart, test results, communication with consultants, family and direct patient care
Patient was managed for:
#PostOP hypotension with lactic acidosis
#Asymptomatic bradycardia
#QTc prolongation - resolved
#Ascending aortic aneurism 4.3cm
#Subclinical hyperthyroidism
#Decreased Cortisol
#Essential HTN
Discharge Plan
-
Patient Disposition: Retirement/SNF
Discharge Diagnosis/Procedures: L Reverse TSA conversion w/ removal of hardware 03/18/24-Dr. Jade
(Left proximal humerus fx-s/p intramedullary nail 02/19/24)
Condition: Good
Diet: As tolerated
Activity: No strenuous activity
Additional Activity: NWB LUE
Driving Restrictions: No driving
Blood Work: repeat TSH in 2-3 weeks with PCP
Activity Restrictions/Additional Instructions:
outpatient follow up by advised in next 3-4 weeks
repeat TSH blood test in 2-3 weeks with PCP
repeat morning Cortisol level with PCP in 2-3 weeks and consider ACTH stim test
Daily morning blood pressure measurment advised, keep log and provide it to PCP in 1 week for adjustment of the blood pressure medications. If blood pressure >150/100 - call your doctor right away
Stand Alone Forms: Total Shoulder Replacement D/C
Referrals:
Tomas Vicente MD [Active] - in three to four weeks (For aortic aneurism monitoring)
Vikram Jade MD [Active] -
UNKNOWN - PT NOT,INTERVIEWE [Family Provider] -
Prescriptions:
New
sennosides [Senokot] 8.6 mg tablet
17.2 mg PO BID Qty: 2 0RF
docusate sodium [Colace] 100 mg capsule
100 mg PO BID Qty: 1 0RF
acetaminophen 325 mg Tablet
650 mg PO Q4HPRN PRN (Reason: mild pain) Qty: 90 0RF
Continued
Caltrate 600 plus D 600 mg-20 mcg (800 unit) Tablet,Chewable
1 tab PO BID
aspirin 81 mg Capsule
81 mg PO DAILY
mupirocin 2 % Ointment
1 applic TOPICAL BID
Patient Comments:
BID for 3 days. last dose 03/18
Discontinued
amlodipine 5 mg Tablet
5 mg PO DAILY
acetaminophen 500 mg Tablet
500 mg PO PRN PRN (Reason: pain)
triamterene-hydrochlorothiazid 37.5-25 mg Capsule
1 cap PO DAILY
docusate sodium [Colace] 100 mg Capsule
100 mg PO DAILY PRN (Reason: constipation)
Discharge Orders:
Discharge Patient (As Directed); Ordered 03/22/24
Ordered By: Michael Garcia
Discharge Date and Time
Print Language: GREENLANDIC
[2024-03-22 11:30] VITALS: BP 117/63
--- NOTE | 2024-03-22 11:47 | CM ---
Addendum entered by Delilah Hou 03/22/24 12:07:
IMM verbally completed bedside with pt
Copy provided
Original Note:
CM reviewed chart and noted dc order
Discussion with nursing/Claudine- SNF already called in for report
Confirmed they can accept pt for SNF admission today
Son to transport this afternoon
Discharge Disposition- [facility]- son transport
Call report to: [phone] prompt 1
Fax report to: [phone].
== END 2024-03-22 14:07 | DRG 982 ==
LOC: 2 SOUTH 12:34
PROVIDERS: ADMITTING PHYSICIAN Internal Medicine; CONSULT PHYSICIAN Orthopaedic Surgery
PROC: 0PPD04Z Removal of Internal Fixation Device from Left Humeral Head, Open Approach (ICD-10-PCS; 2024-03-18)
PROC: 0RRK00Z Replacement of Left Shoulder Joint with Reverse Ball and Socket Synthetic Substitute, Open Approach (ICD-10-PCS; 2024-03-18)
DX: I95.81 Postprocedural hypotension (principal); E87.20 Acidosis, unspecified; S42.212A Unspecified displaced fracture of surgical neck of left humerus, initial encounter for closed fracture; T84.191A Other mechanical complication of internal fixation device of left humerus, initial encounter; E27.49 Other adrenocortical insufficiency; I25.10 Atherosclerotic heart disease of native coronary artery without angina pectoris; R73.03 Prediabetes; G62.9 Polyneuropathy, unspecified; M06.9 Rheumatoid arthritis, unspecified; I10 Essential (primary) hypertension; Y79.2 Prosthetic and other implants, materials and accessory orthopedic devices associated with adverse incidents; M81.0 Age-related osteoporosis without current pathological fracture; W18.30XA Fall on same level, unspecified, initial encounter; E86.0 Dehydration; T46.1X5A Adverse effect of calcium-channel blockers, initial encounter; T41.1X5A Adverse effect of intravenous anesthetics, initial encounter; R00.1 Bradycardia, unspecified; R94.31 Abnormal electrocardiogram [ECG] [EKG]; I71.21 Aneurysm of the ascending aorta, without rupture; E05.90 Thyrotoxicosis, unspecified without thyrotoxic crisis or storm; Z79.82 Long term (current) use of aspirin
CPT/HCPCS: 73020; 73030; 76000; 80048; 80053; 82330; 82533; 83605; 83735; 84439; 84443; 85014; 85018; 85025; 85027; 86850; 86900; 86901; 87070; 93005; 93306; 97110; 97116; 97163; 97167; 97530; 97535; C1713; C1776